=== PATIENT | male | born 1940 | race Caucasian/White ===

== ENCOUNTER 2017-09-17 10:15 | Emergency (ER) | payer OTHER ==
[2017-09-17 10:23] VITALS: RESP 16; TEMP 98.6
--- NOTE | 2017-09-17 11:31 | EDPHY ---
H & P Stated Complaint: R calf pain/swelling, r/o dvt, had trauma to area Time Seen by Provider: 09/17/17 10:36 HPI/ROS: CHIEF COMPLAINT: Right calf swelling HISTORY OF PRESENT ILLNESS: The patient presents the ED for evaluation of right calf swelling. The patient reportedly had an injury 2 weeks ago where he tripped and fell. Over the past several days he has had increased pain and swelling to the right ear. He denies any chest pain or shortness of breath. The patient denies fever, numbness or additional complaints. He has no prior history of PE or DVT. The patient does have a history of diabetes which has been well controlled. REVIEW OF SYSTEMS: A comprehensive 10 point review of systems is otherwise negative aside from elements mentioned in the history of present illness. Source: Patient Exam Limitations: No limitations - Personal History Current Tetanus/Diphtheria Vaccine: Unsure Current Tetanus Diphtheria and Acellular Pertussis (TDAP): Unsure - Medical/Surgical History Hx Asthma: No Hx Chronic Respiratory Disease: No Hx Diabetes: Yes Hx Cardiac Disease: No Hx Renal Disease: No Hx Cirrhosis: No Hx Alcoholism: No Hx HIV/AIDS: No Hx Splenectomy or Spleen Trauma: No Other PMH: htn, depression, anxiety, NIDDM - Social History Smoking Status: Never smoked - Physical Exam Exam: General Appearance: Alert, no distress Eyes: Pupils equal and round no pallor or injection ENT, Mouth: Mucous membranes moist Respiratory: There are no retractions, lungs are clear to auscultation Cardiovascular: Regular rate and rhythm Gastrointestinal: Abdomen is soft and nontender, no masses, bowel sounds normal Neurological: A&O, normal motor function, normal sensory exam, normal cranial nerves Skin: Warm and dry, no rashes Musculoskeletal: Neck is supple nontender Extremities: Asymmetric calf swelling noted in the right calf, 2+ dorsalis pedis and posterior tibial pulse noted Constitutional: Initial Vital Signs Temperature (C) 37.0 C 09/17/17 10:20 Heart Rate 95 09/17/17 10:20 Respiratory Rate 16 09/17/17 10:20 Blood Pressure 110/75 09/17/17 10:20 O2 Sat (%) 97 09/17/17 10:20 O2 Delivery Mode Room Air Allergies/Adverse Reactions: No Known Allergies Allergy (Unverified 09/17/17 10:19) Home Medications: Medication Instructions Recorded Clonazepam 09/17/17 Lamotrigine 09/17/17 Lipitor 09/17/17 Lisinopril 09/17/17 Metformin HCl 09/17/17 Medical Decision Making - Diagnostics Imaging Results: Right lower extremity ultrasound: Images reviewed by myself and discussed with radiologist Dr. Neil Butterfield. Negative for DVT, superficial phlebitis or Albert cyst. ED Course/Re-evaluation: The patient presents to the ED for evaluation of asymmetric calf swelling in the setting of remote trauma. The patient is noted to have a normal 2+ dorsalis pedis and posterior tibial pulse. The patient was taken for an ultrasound which demonstrates no evidence of a DVT Albert cyst or obvious explanation of his swelling. The patient has no clinical evidence of cellulitis or abscess. The patient is advised to elevate the extremity to continue ambulation and to repeat his ultrasound in 2 weeks for any ongoing symptoms. The patient should return to the ED sooner for increasing pain, redness, swelling or other concerns. Differential Diagnosis: Differential diagnosis considered includes myofascial strain, Albert cyst, DVT, superficial phlebitis, cellulitis Departure - Departure Disposition: Home, Routine, Self-Care Clinical Impression: Right calf pain Condition: Good Instructions: Musculoskeletal Pain (ED) Additional Instructions: 1. Your ultrasound demonstrates no evidence of a blood clot. 2. Please repeat your ultrasound in 2 weeks for any ongoing symptoms of pain or swelling. Please return to the ED sooner for markedly increasing pain, redness, fever or other concerns. 3. Please follow up with your primary care provider for a recheck within the next week. Referrals: RONDA SANTIZO [Other] - As per Instructions
[2017-09-17 11:42] VITALS: BP 124/78; PULSE 83; O2SAT 92
== END 2017-09-17 11:39 | disposition home or self-care (01) ==
DX: S89.92XA Unspecified injury of left lower leg, initial encounter (principal); I10 Essential (primary) hypertension; E11.9 Type 2 diabetes mellitus without complications; Z79.84 Long term (current) use of oral hypoglycemic drugs; W01.0XXA Fall on same level from slipping, tripping and stumbling without subsequent striking against object, initial encounter